=== PATIENT | female | born 1980 | race Caucasian/White ===

== ENCOUNTER 2019-09-15 20:27 | Emergency (ER) | payer BC ==
[~2019-09-15] VITALS: Ht 170.2 cm; Wt 90.7 kg
[2019-09-15 21:09] VITALS: BP 144/88
--- NOTE | 2019-09-15 21:22 | ER.PDOC ---
General Chief Complaint: Toothache Stated Complaint: POSS ABSCESS TOOTH Time seen by MD: 21:05 Source: patient Exam Limitations: no limitations History of Present Illness Initial Comments dental pain for two weeks called dentist who gave rx of amoxicillin has been taking for two days. no fever or chills only pain left lower molar. Timing/Duration: gradual Severity: moderate Allergies: Coded Allergies: No Known Allergies (Unverified , 04/11/14) Past Medical History Medical History: other Surgical History: breast augmentation Social History Alcohol Use: occassionally Drug Use: none Constitutional: denies chills, denies fever Ears: denies pain Nose: denies congestion Mouth: pain; denies swelling Throat: denies pain Cardiovascular: denies chest pain Gastrointestinal: denies diarrhea, denies vomiting Musculoskeletal: denies neck pain Skin: denies rash Physical Exam General Appearance: alert, no distress Head/Neck: head nml inspection, neck nml inspection Eyes: eyes nml inspection, PERRL Mouth: dental tenderness Throat: pharynx nml, voice nml Ears/Nose: nml inspection Respiratory: no resp. distress, lungs clear CVS: reg. rate & rhythm, heart sounds nml Abdomen: non-tender Extremities: non-tender Skin Exam: Normal Color NEURO/PSYCH: mood/effect nml Comments pain left lower molar second from rearmost. no abscess. Results/Orders Results/Orders Vital Signs Date Time Temp Pulse Resp B/P (MAP) Pulse Ox O2 Delivery O2 Flow Rate FiO2 09/15/19 21:09 99.2 102 16 144/88 (106) 96 Room Air 09/15/19 21:09 99.2 102 16 09/15/19 21:09 99.2 102 16 96 Progress Progress looked up on [facility] Departure Time of Disposition: 21:16 Disposition: 01 HOME, SELF-CARE Impression: Primary Impression: Pain, dental Condition: Stable Patient Instructions: Dental Pain Referrals: PARMJIT CHERY MD (PCP) PRIMARY CARE PROVIDER Additional Instructions: see your dentist as scheduled on tuesday, return for any worsening symptoms. Duration or Time Spent with Pa: NADER LAO MD Sep 15, 2019 21:22
== END 2019-09-15 21:30 | disposition home or self-care (01) ==
LOC: ER 20:27
DX: K08.89 Other specified disorders of teeth and supporting structures (principal)
CPT/HCPCS: 99281

== ENCOUNTER 2020-10-05 23:43 | Emergency (ER) | payer BC, OTHER ==
[~2020-10-05] VITALS: Ht 170.2 cm; Wt 93.0 kg
--- NOTE | 2020-10-06 00:10 | NUR ---
Patient presents with C/O abdominal pain. Patient states, "Early this evening, I felt like my blood pressure was high and I developed a nose bleed. Now I am having abdominal pain in upper abdomen with pain on both sides also. I have noticed that it is harder to urinate, kind of like urgency but can't go right away." Patient rates pain 8/10 intermittent cramping and sharp. Last bowel movement was earlier today. No other complaints voiced at this time.
[2020-10-06 00:17] VITALS: BP 131/84
--- NOTE | 2020-10-06 00:27 | ER.PDOC ---
General Chief Complaint: Abdomen Pain Stated Complaint: ABD PAIN Time seen by MD: 00:26 Source: patient Exam Limitations: no limitations History of Present Illness Initial Comments Abdominal pain for several months worse in the last 1 month. No nausea, vomiting or diarrhea. No fever or chills. Severity/Quality: moderate Radiation: flank, back Associated Symptoms: denies symptoms Exacerbated by: nothing Relieved By: nothing Allergies: Coded Allergies: No Known Allergies (Unverified , 04/11/14) Vital Signs First Vital Signs Date Time Temp Pulse Resp B/P (MAP) Pulse Ox O2 Delivery O2 Flow Rate FiO2 10/06/20 00:17 98.2 107 18 131/84 (100) 99 Room Air Last Vital Signs Date Time Temp Pulse Resp B/P (MAP) Pulse Ox O2 Delivery O2 Flow Rate FiO2 10/06/20 00:17 98.2 107 18 8 00:17 99 10/06/20 00:17 131/84 (100) Room Air Past Medical History Medical History: no pertinent history Surgical History: no surgical history Family History Significant Family History: no pertinent family hx Social History Alcohol Use: occassionally Drug Use: none Constitutional: no symptoms reported EENTM: no symptoms reported Respiratory: no symptoms reported Cardiovascular: no symptoms reported Gastrointestinal: see HPI All Other Systems: Reviewed and Negative Physical Exam General Appearance: No Apparent Distress, WD/WN Neck: Non-Tender, Full Range of Motion, Supple, Normal Inspection Respiratory: chest non-tender, lungs clear, normal breath sounds, no respiratory distress, no accessory muscle use Cardiovascular: Normal Peripheral Pulses, Regular Rate, Rhythm, No Edema, No Gallop, No JVD, No Murmur Gastrointestinal: Normal Bowel Sounds, No Organomegaly, No Pulsatile Mass, Tenderness Back: Normal Inspection, No CVA Tenderness, No Vertebral Tenderness Extremities: Normal Range of Motion, Non-Tender, Normal Inspection, No Pedal Edema, No Calf Tenderness, Normal Capillary Refill, Pelvis Stable Neurologic/Psychiatric: underwriter solicitation director II-XII NML as Tested, No Motor/Sensory Deficits, Alert, Normal Mood/Affect, Oriented x 3 Skin: Normal Color, Warm/Dry Lymphatic: No Adenopathy Results/Orders Results/Orders Orders - ASIF FARMER MD Cbc With Auto Diff (10/06/20 00:21) Comprehensive Metabolic Panel (10/06/20 00:21) Lipase (10/06/20 00:21) Urinalysis (10/06/20 00:21) Ct Abd/Pelvis Wo Iv Contrast (10/06/20 00:21) Hcg Urine (10/06/20 00:21) Vital Signs Date Time Temp Pulse Resp B/P (MAP) Pulse Ox O2 Delivery O2 Flow Rate FiO2 10/06/20 00:17 98.2 107 18 10/06/20 00:17 98.2 107 18 99 10/06/20 00:17 98.2 107 18 131/84 (100) 99 Room Air Laboratory Tests Test 10/06/20 00:08 10/06/20 00:34 Urine Collection Type RANDOM Urine Color YELLOW Urine Appearance CLEAR Urine Bilirubin NEGATIVE (NEGATIVE) Urine Ketones NEGATIVE (NEGATIVE) Urine Specific [place] >=1.030 (1.005-1.030) Urine pH 5.5 (4.5-8.0) Urine Protein NEGATIVE (NEGATIVE) Urine Urobilinogen 0.2 E.U./dL (0.2) Urine Nitrate NEGATIVE (NEGATIVE) Urine Leukocyte Esterase NEGATIVE (NEGATIVE) Urine Glucose (Auto)(UA) NEGATIVE (NEGATIVE) Urine Blood NEGATIVE (NEGATIVE) Urine HCG, Qualitative NEGATIVE (NEGATIVE) White Blood Count 7.6 10^3/uL (4.5-11.0) Red Blood Count 4.37 10^6/uL (4.00-5.20) Hemoglobin 14.0 g/dL (12.0-15.0) Hematocrit 42.7 % (36.0-46.0) Mean Corpuscular Volume 97.7 fL (78-100) Mean Corpuscular Hemoglobin 32.0 pg (26-34) Mean Corpuscular Hemoglobin Concent 32.8 g/dL (33-36.5) L Red Cell Distribution Width 12.4 % (11.5-14.5) Platelet Count 274 10^3/uL (150-400) Mean Platelet Volume 9.9 fL (7.8-11.0) Neutrophils (%) (Auto) 61.9 % (41.0-85.0) Lymphocytes (%) (Auto) 29.3 % (24.0-44.0) Monocytes (%) (Auto) 7.5 % (5.0-12.0) Neutrophils # (Auto) 4.7 10^3/uL (1.8-7.7) Lymphocytes # (Auto) 2.22 10^3/uL1 (1.0-4.8) Monocytes # (Auto) 0.6 10^3/uL (0.3-0.8) Absolute Immature Granulocyte (auto 0.01 10^3 u/L (0-2) Absolute Eosinophils (auto) 0.1 10^3/uL (0.0-0.2) Immature Granulocytes % 0.10 % (0.00-0.50) Eosinophils % 0.8 % (0.0-5.0) Basophils % 0.4 % (0.0-0.2) H Basophils # 0.0 10^3/uL (0.0-0.1) Sodium Level 145 mmol/L (132-145) Potassium Level 4.0 mmol/L (3.6-5.2) Chloride Level 106.0 mmol/L (96-109) Carbon Dioxide Level 27.8 mmol/L (20.0-32) Anion Gap 15.2 Blood Urea Nitrogen 10 mg/dL (7-18) Creatinine 1.09 mg/dL (0.59-1.40) Estimated GFR () 68.0 (>/=60) Est GFR (CKD-EPI)(Non-Afr [place]) 56.2 (>/=60) BUN/Creatinine Ratio 9.0 Glucose Level 118 mg/dL (70-110) H Calcium Level 9.3 mg/dL (8.4-10.5) Total Bilirubin 0.3 mg/dL (0.2-1.0) Aspartate Amino Transferase (AST) 13 U/L (0-35) Alanine Aminotransferase (ALT) 21 U/L (12-78) Alkaline Phosphatase 57 U/L (50-136) Total Protein 7.5 g/dL (6.4-8.2) Albumin 3.9 g/dL (3.4-5.0) Globulin 3.6 Albumin/Globulin Ratio 1.083 Lipase 71 U/L (114-286) L Progress Progress CT abdomen/pelvis shows no acute abnormality. Labs are unremarkable. Patient is feeling okay to go home. ER DEPART Departure Time of Disposition: 02:20 Disposition: 01 HOME / SELF CARE / HOMELESS Impression: Primary Impression: Nonspecific abdominal pain Condition: Stable Referrals: MADHURI HORNER TICKET MARKER (PCP) PRIMARY CARE PROVIDER Additional Instructions: Ibuprofen Follow-up with PCP in 2 to 3 days Return to ED if worsening symptoms or concerns Duration or Time Spent with Pa: 60 min ASIF FARMER MD Oct 06, 2020 00:27
[2020-10-06 00:36] LABS: BILIRUBIN,URINE NEGATIVE (NEGATIVE); UA COLOR YELLOW
[2020-10-06 00:37] LABS: UROBILINOGEN,URINE 0.2 E.U./dL (0.2)
[2020-10-06 00:51] LABS: BASOPHIL % 0.4 % (0.0-0.2); EOSINOPHIL # 0.1 10^3/uL (0.0-0.2); EOSINOPHIL % 0.8 % (0.0-5.0); LYMPHOCYTES # 2.22 10^3/uL1 (1.0-4.8); LYMPHOCYTES % 29.3 % (24.0-44.0); MONOCYTES # 0.6 10^3/uL (0.3-0.8); MONOCYTES % 7.5 % (5.0-12.0); NEUTROPHIL # 4.7 10^3/uL (1.8-7.7); NEUTROPHILS % 61.9 % (41.0-85.0); PLATELET COUNT 274 10^3/uL (150-400); RED CELL DISTRIBUTION WIDTH 12.4 % (11.5-14.5)
[2020-10-06 01:11] LABS: CALCIUM 9.3 mg/dL (8.4-10.5); CARBON DIOXIDE 27.8 mmol/L (20.0-32)
--- NOTE | 2020-10-06 02:12 | DIREP ---
PROCEDURE:CT ABDOMEN/PELVIS W/O CONTRAST COMPARISON:[facility], CT, CT-CTA PULMONARY ANGIOGRAM, 04/11/2014, 09:09 PM. INDICATIONS:Generalized abdominal pain TECHNIQUE:Axial images were created through the abdomen and pelvis without intravenous contrast material. No oral contrast was administered. Sagittal and coronal reconstructions were performed from source images. FINDINGS: LUNG BASES:Normal. No visible pulmonary or pleural disease. LIVER:Normal. No significant liver lesions are identified. BILIARY:Normal. No visible dilatation or calcification. PANCREAS:Normal. No lesion, fluid collection, ductal dilatation, or atrophy. SPLEEN:Normal. No enlargement or focal lesion. ADRENALS:Normal. No mass or enlargement. URINARY TRACT:Tiny calculus in the left kidney. No other urinary calculi. No focal lesions or hydronephrosis. AORTA/VASCULAR:Normal. No aneurysm. RETROPERITONEUM:Normal. No mass or adenopathy. BOWEL/MESENTERY:The appendix is visualized and appears normal. There is no intestinal obstruction, free fluid, free air or mesenteric inflammatory changes. ABDOMINAL WALL:Normal. No mass or hernia. PELVIC ORGANS:Normal. No visible mass. Pelvic organs appropriate for patient age. BONES:Normal for age. No bony lesion or acute fracture. OTHER:Bilateral breast implants. CONCLUSION: 1. No acute abdomen/pelvis abnormalities. 2. Tiny left renal calculus. Dictated by: Mickey Rodirguez M.D. on 10/06/2020 at 02:05 AM
== END 2020-10-06 02:27 | disposition home or self-care (01) ==
LOC: ER 23:43
DX: R10.9 Unspecified abdominal pain (principal)
CPT/HCPCS: 36415; 74176; 80053; 81003; 81025; 83690; 85025; 99284

== ENCOUNTER → 2021-02-06 | Outpatient (CLI) | payer OTHER ==
--- NOTE | 2021-02-06 13:44 | DIREP ---
PROCEDURE:XRAY HAND MIN 3 VW-RT COMPARISON:None. INDICATIONS:M79.641 RIGHT HAND PAIN FINDINGS: BONES:Normal. JOINTS:Normal. SOFT TISSUES:Normal. OTHER:No additional findings. CONCLUSION:Normal examination. Dictated by: Juan Luis Alvarez MD on 02/06/2021 at 01:42 PM
== END | disposition home or self-care (01) ==
LOC: RAD 10:19
PROVIDERS: ATTEND Nurse Practitioner Family
DX: M79.641 Pain in right hand (principal); M25.531 Pain in right wrist
CPT/HCPCS: 73130-RT

== ENCOUNTER → 2021-04-22 | Outpatient (CLI) | payer OTHER ==
--- NOTE | 2021-04-23 00:34 | DIREP ---
PROCEDURE:XRAY FINGER-RT COMPARISON:[facility], CR, XRAY HAND MIN 3 VW-RT, 02/06/2021, 10:46 AM. INDICATIONS:M79.644 PAIN RT THUMB FINDINGS: BONES:Subacute fracture of the radial base of the distal phalanx of the thumb is present near-anatomic alignment. Mild periosteal reaction is also seen to the distal aspect of the thumb metacarpal, which may represent healing nondisplaced fracture. JOINTS:Normal. SOFT TISSUES:Normal. OTHER:No additional findings. CONCLUSION:1. Subacute fracture of the radial base the distal phalanx of the thumb in near-anatomic alignment. 2. Mild periosteal reaction to the distal aspect of the metacarpal, which may represent healing fracture. Dictated by: Denis Covington M.D. on 04/22/2021 at 03:19 PM
== END | disposition home or self-care (01) ==
LOC: RAD 12:24
PROVIDERS: ATTEND Nurse Practitioner Family
DX: S62.521A Displaced fracture of distal phalanx of right thumb, initial encounter for closed fracture (principal); X58.XXXA Exposure to other specified factors, initial encounter; Y93.89 Activity, other specified; Y92.89 Other specified places as the place of occurrence of the external cause; Y99.8 Other external cause status
CPT/HCPCS: 73140-RT